=== PATIENT | male | born 1940 | race African-American/Black ===

== ENCOUNTER → 2019-04-24 | Outpatient (CLI) | payer OTHER ==
[~2019-04-24] MED LIST: LOSARTAN-HCTZ1 EAC1 PO; MULTIVITAMINS PO; WELCHOL3.75 GM PO
== END ==
LOC: RAD 09:47
DX: M47.26 Other spondylosis with radiculopathy, lumbar region (principal); M48.07 Spinal stenosis, lumbosacral region; M43.16 Spondylolisthesis, lumbar region